=== PATIENT | male | born 1970 | race Caucasian/White ===

== ENCOUNTER → 2019-11-22 | Outpatient (CLI) | payer OTHER | LOC: SC 19:30 | PROVIDERS: ATTEND Nurse Practitioner Family | DX: G47.33 Obstructive sleep apnea (adult) (pediatric) (principal) | CPT/HCPCS: 95806 ==

== ENCOUNTER 2019-12-18 14:28 | Outpatient (CLI) | payer OTHER ==
--- NOTE | 2019-12-18 15:15 | SLEEP CARE CONSULTATION ---
Information from patient questionnaire entered by Carlos Alston. I have reviewed and concur with the information entered by Carlos Alston. This document represents the service I personally performed and the decisions made by me, Collette Puckett ARNP. History of Present Illness Service Date and Time: 12/18/20191427 Initial [place] Sleepiness Scale score: 17 (in 2020) Current [place] Sleepiness Scale score: 16 Additional HPI information: TAWANNA WALTERS returns for follow up and results of the recently performed home sleep study. I explained the pathophysiology behind obstructive sleep apnea. We then spent quite a bit of time discussing different treatment options. For mild obstructive sleep apnea, surgery and oral appliance are alternatives to nasal CPAP therapy but in moderate or severe cases, nasal CPAP is the most effective a nd reliable treatment. Because apnea is primarily in supine position, then positional management therapy could be effective. Methods discussed such as positioning with pillows, using a T-shirt with tennis balls in the back, and shown commercial products that have a pillow format on back to prevent supine sleep. I reviewed the impact of weight changes on sleep apnea and strongly recommended losing weight. After some discussion, the patient opted to go with the nasal CPAP therapy. Nasal autoCPAP set at 4-15 cmH20 will be ordered with rationale explained. A manual titration study will be ordered if unable to find optimal pressure with office adjustments. I explained how CPAP machine works with sample devices Respironics Dreamstation and ResCitilog [id number] and what to expect when using the machine. Using CPAP every night in order to get used to it was emphasized. Patient advised to put CPAP mask on before getting into bed so as not to fall asleep without CPAP. To assist acclimation to CPAP use, it could also be used for a short time during day while reading or watching TV. The patient was instructed to call the CPAP supplier to discuss any mechanical problem that may occur. If the mask given is uncomfortable or is difficult to keep on through the night even with adjustment, contact the CPAP supplier as many will replace with another mask style if notified before 30 days. If snoring or perceives is not getting enough air or too much air from the machine, notify this office. [facility] patient education PAP tips reviewed and given to patient. Patient counseled not drink alcohol less than 4 hours before bedtime as it can increase snoring and apnea. Patient was cautioned about risks of drowsy driving until sleepiness symptoms resolve. Sleep Study - Results Type of Sleep Study: Home sleep study Prior sleep studies: No Polysomnography/Home Sleep Study results: The AHI4% calculation of 6.5 per hour of recording time was based on a total of 4 scored apneas and 40 scored hypopneas with 4% desaturations. Supine AHI4%: 58.4 per hour. Non-supine AHI4%: 5.2 per hour. Oxygen Summary: Patient's baseline O2 saturation was 96.4 %. The patient spent 14.6 minutes at an oxygen saturation less than 90%, and 0.1 minutes less than 85%. The desaturation index was 7.0 events per hour sleep time. The lowest saturation was 84.8 %. SNORING: The percent of the study time spent snoring was 0.0 %. The Snoring Count was 0 . The Snoring Index was 0.0 . PULSE RATE REVIEW: The mean heart rate was 82 beats per minute. The rate ranged from a low of 57 to a high of 102 beats per minute. DIAGNOSIS CODE: Obstructive Sleep Apnea (ICD-10 G47.33), associated with mild hypoxia. Allergies and Home Medications Drug allergies reviewed: Yes (NKDA) Home medication list reviewed: Yes (no changes) Review of Systems Review of systems same as previous: Yes (no changes) Physical Exam Heart Rate: 101 O2 Saturation: 98 Height: 6 ft Weight: 217 lb Body Mass Index: 29.4 BMI Classification: Overweight Impression and Plan 1. Obstructive Sleep Apnea-Hypopnea Syndrome, mild, with lowest oxygen saturation of 84.8%. Obviously this is the cause of the patients symptoms of unrefreshed sleep, and excessive daytime sleepiness. Positive pressure therapy could benefit hypertension. As mentioned above, the patient will be started on nasal autoCPAP therapy with pressure set at 4-15 cmH2O. A manual titration study will be completed if unable to find optimal treatment pressure with office adjustments. Compliance guidelines also reviewed. A copy of compliance guidelines will be given for reference at check out. Because the apnea is more severe supine, I instructed to avoid sleeping supine using pillow positioning until able to start CPAP use. * Nasal auto CPAP therapy, pressure at 4-15 cm H2O. * Attempt to lose weight. * Avoid alcohol consumption near bedtime. * Avoid supine sleep until using CPAP. * The patient is again cautioned about driving until sleepiness completely resolves. * Return one month after CPAP obtained. I will assess response to therapy and compliance at that time. Counseling Topics: Weight loss health impact Visit Type: In Office Time Spent with Patient (minutes): 19 Provider Statement: I spent 100% of the Face to Face Visit with the patient with greater than 50% spent counseling the patient and coordination of care.
== END 2019-12-18 14:29 | disposition home or self-care (01) ==
LOC: SC 14:28
PROVIDERS: ATTEND Nurse Practitioner Family
DX: G47.33 Obstructive sleep apnea (adult) (pediatric) (principal); E66.3 Overweight; Z68.29 Body mass index [BMI] 29.0-29.9, adult
CPT/HCPCS: 99212; 99213

== ENCOUNTER 2021-11-10 10:47 | Outpatient (CLI) | payer OTHER ==
[2021-11-10 11:25] VITALS: BP 136/80
--- NOTE | 2021-11-10 11:25 | SLEEP CARE CONSULTATION ---
Information from patient questionnaire entered by Yahaira Burgess. I have reviewed and concur with the information entered by Yahaira Burgess. This document represents the service I personally performed and the decisions made by me, Collette Puckett ARNP. History of Present Illness Service Date and Time: 11/10/2021 1047 Previous diagnosis: Mild, Obstructive Sleep Apnea-Hypopnea Syndrome AHI: 6.5 (in 2019) Reason for follow up: annual (LAST SEEN 12/2019) Equipment type: CPAP (ResMed Airsense 10) Equipment obtained from: [facility] (not getting supplies due to needing prescription updated) Mask style: Full face (?F20) Backup mask available: No (needs to renew supplies) Last cushion change: September 2021 Prior sleep studies: No Type of Sleep Study: Home sleep study HPI additional information: TAWANNA WALTERS was diagnosed to have mild, AHI 6.5, obstructive sleep apnea- hypopnea syndrome and returned today for CPAP therapy annual follow-up. Sleep Study - Results Type of Sleep Study: Home sleep study Prior sleep studies: No CPAP Compliance Data - Data Reviewed with Patient Average duration of nightly device use: 4 hours 37 minutes Compliance rate %: 33 (105/180 days used) Current pressure setting (cmH2O): 4-15 Average residual AHI: 0.4 Compliance data discussion: Pt states his compliance has not been good the last couple of weeks due to not having supplies. He ran out of the filter and [facility] didn't get him replacements. 11/10/21 11am BRISA Redd Subjective Patient concerns: reports: air blowing in eyes, mask leak noise, dry mouth, nose, throat (occasionally). denies: aerophagia, mask discomfort, condensation in mask/hose, nasal congestion, epistaxis Observed to snore while using device: No Current pressure setting perceived as: comfortable On therapy, patient: reports: sleeping better, awakening more refreshed, being more awake and alert during the day, more rested overall. denies: drowsiness while driving Initial [place] Sleepiness Scale score: 17 (in 2019) Current [place] Sleepiness Scale score: 16 (11/09/21) Allergies and Home Medications Drug allergies reviewed: Yes (Vicodin) Home medication list reviewed: Yes (no changes) Review of Systems Review of systems same as previous: No (PTSD, in therapy) Physical Exam Vital signs obtained and entered by: BRISA REDD Blood Pressure: 136/80 (left arm ) Cuff size: regular Heart Rate: 97 O2 Saturation: 97 Height: 6 ft Weight: 205 lb Weight change since last visit: 36 lb loss according to patient Body Mass Index: 27.8 BMI Classification: Overweight Impression and Plan 1. Obstructive Sleep Apnea-Hypopnea Syndrome, mild, with poor treatment compliance and good apnea control. On CPAP therapy, the patient has better sleep quality and is more rested overall. Patient ran out of supplies and has been unable to use his CPAP regularly as he wishes to do. I will update his prescription for supplies and have him come in to recheck compliance. He voiced understanding. Patient's apnea severity and rationale for treatment to reduce ap jazmín, improve sleep quality and reduce cardiovascular and cerebrovascular events was reviewed. I also reviewed the benefit of consistent device use of CPAP for hypertension. Patient states he gained weight after we last saw him but through diet and exercise has lost weight, about 36 pounds. I encouraged him to continue to try to lose weight. * Continue auto CPAP pressure at 4-15 cmH2O * Update supplies * Notify me if snoring with mask or feeling that the pressure is too much or too little * Continue to try to lose weight * Call this office if any problems using CPAP * Return for follow up in 1 year, or sooner if concerns arise Counseling Topics: Spare mask, Weight loss health impact Visit Type: In Office Time Spent with Patient (minutes): 23 Provider Statement: I spent 100% of the Face to Face Visit with the patient with greater than 50% spent counseling the patient and coordination of care.
== END 2021-11-10 10:48 | disposition home or self-care (01) ==
LOC: SC 10:47
PROVIDERS: ATTEND Nurse Practitioner Family
DX: G47.33 Obstructive sleep apnea (adult) (pediatric) (principal); E66.3 Overweight; Z68.27 Body mass index [BMI] 27.0-27.9, adult
CPT/HCPCS: 99212; 99213

== ENCOUNTER 2021-12-08 08:15 | Outpatient (CLI) | payer OTHER ==
--- NOTE | 2021-12-08 09:27 | MRI Report ---
PROCEDURE: LUMBAR SPINE WO INDICATIONS: DORSALGIA TECHNIQUE: Noncontrast sagittal T1 spin echo and T2 fast echo, sagittal STIR, axial T1 and T2 fast spin echo thr ough the lumbar spine. In cases with scoliosis, additional coronal T2 fast spin echo may be performe d. COMPARISON: None. FINDINGS: Image quality: Excellent. Alignment and Curvature: No plain films are available for comparison. Thus, for numbering purposes, 5 lumbar type vertebral bodies will be presumed for the current report. This should be confirmed with plain film correlation prior to any lumbar spinal intervention. There is a 2 mm of retrolisthesis of L5 on S1 otherwise normal bony alignment. Bone Marrow: Marrow is of normal overall signal. L3 hemangioma. No acute vertebral body compression fractures. There is mild reactive signal within the end plate adjacent to the L5-S1 intervertebral d isc. There is moderate left and mild right sided marrow edema within the sacrum and iliac bones adjac ent to the sacroiliac joints. Spinal Cord: Conus medullaris terminates at the mid L1 level. Visualized cord demonstrates normal s ignal and size. Paraspinous Soft Tissues: No paravertebral masses. T12-L1: Normal in appearance. L1-L2: Normal in appearance. L2-L3: Normal in appearance. L3-L4: Normal in appearance. L4-L5: Normal in appearance. L5-S1: Moderate disc height loss and desiccation. Mild diffuse disc bulge. Mild bilateral facet hyp ertrophy. Mild canal stenosis. Mild bilateral foraminal stenosis. IMPRESSION: 1. Left greater than right sacroiliitis. 2. Disc and facet disease at L5-S1 causing mild canal and foraminal stenoses. No neural impingement. Reviewed by: Estephania Mueller MD on 12/08/2021 9:26 AM PDT Approved by: Estephania Mueller MD on 12/08/2021 9:26 AM PDT Station ID: [id number]
== END 2021-12-08 08:16 | disposition home or self-care (01) ==
LOC: DI 08:15
DX: M46.1 Sacroiliitis, not elsewhere classified (principal); M51.37 Other intervertebral disc degeneration, lumbosacral region; M47.817 Spondylosis without myelopathy or radiculopathy, lumbosacral region; M48.07 Spinal stenosis, lumbosacral region

== ENCOUNTER 2021-12-13 08:40 | Outpatient (CLI) | payer OTHER ==
[2021-12-13 09:11] VITALS: BP 130/80
--- NOTE | 2021-12-13 09:11 | SLEEP CARE CONSULTATION ---
Information from patient questionnaire entered by Walter Esposito. I have reviewed and concur with the information entered by Walter Esposito. This document represents the service I personally performed and the decisions made by me, Collette Puckett ARNP. History of Present Illness Service Date and Time: 12/13/2021 0840 Previous diagnosis: Mild, Obstructive Sleep Apnea-Hypopnea Syndrome AHI: 6.5 Reason for follow up: other (5 WEEK F/U ) Equipment type: CPAP (RESMED) Equipment obtained from: [facility] Mask style: Full face (F20) Mask brand: Resmed Backup mask available: No (needs supplies) Last cushion change: 1 month Prior sleep studies: No Type of Sleep Study: Home sleep study HPI additional information: TAWANNA WALTERS was diagnosed to have mild, AHI 6.5, obstructive sleep apnea- hypopnea syndrome and returned today for CPAP therapy 5 week follow-up. Sleep Study - Results Type of Sleep Study: Home sleep study Prior sleep studies: No CPAP Compliance Data - Data Reviewed with Patient Average duration of nightly device use: 4 hours 0 minutes Compliance rate %: 17 (01/11 days used) Current pressure setting (cmH2O): 4-15 Average residual AHI: 0.2 Central apnea: 0.0 Obstructive apnea: 0.0 Average large leak: 0.0 Compliance data discussion: He ordered supplies but has not been able to receive any supplies. The heated tubing has an odor to it and he is not able to use it. He is not able to sleep well without his CPAP. Subjective Missed days of use due to: reports: illness, other (not getting supplies) Patient concerns: reports: condensation in mask/hose (just when in [place], not since), nasal congestion, dry mouth, nose, throat. denies: aerophagia, mask discomfort, air blowing in eyes, mask leak noise, epistaxis Observed to snore while using device: No Current pressure setting perceived as: comfortable On therapy, patient: reports: sleeping better, awakening more refreshed, being more awake and alert during the day, more rested overall. denies: drowsiness while driving Initial [place] Sleepiness Scale score: 17 (in 2019) Current [place] Sleepiness Scale score: 14 (12/13/21) Allergies and Home Medications Drug allergies reviewed: Yes (vicodin) Home medication list reviewed: Yes (no changes) Review of Systems Review of systems same as previous: Yes (no changes) Physical Exam Vital signs obtained and entered by: WALTER Alas MA Blood Pressure: 130/80 (left arm ) Cuff size: regular Heart Rate: 102 O2 Saturation: 98 Height: 6 ft Weight: 215 lb 6.4 oz Body Mass Index: 29.2 BMI Classification: Overweight Impression and Plan 1. Obstructive Sleep Apnea-Hypopnea Syndrome, mild, with poor treatment compliance and good apnea control. On CPAP therapy, the patient has better sleep quality and is more rested overall. Patient having difficulty being able to get supplies from his DME company. He got a call from them about 5 days after his last appointment and made an order but evidently it was not submitted. He talked to them 2 weeks after not receiving the order and they submitted an order. It has been about 2-1/2 weeks since then and he still has not received the supplies. He states his tubing has a odor to it from him using an ozone cell cleaner that he cannot get out and is making it difficult for him to use the machine. He really likes using his device and has good restful sleep when using it. He has been unable to use it because of the odor. I was able to supply him with a new heated tubing for his ResMed machine. I will have my color maker dyer contact his DME to see what is going on with his supply orders. I will have him follow-up again in 1 to 2 months to recheck compliance since he was unable to bring this up due to these supply difficulties. Patient's apnea severity and rationale for treatment to reduce apnea, improve sleep quality and reduce cardiovascular and cerebrovascular events was reviewed. I also reviewed the benefit of consistent device use of CPAP for hypertension. * Continue auto CPAP pressure at 4-15 cmH2O * Notify me if snoring with mask or feeling that the pressure is too much or too little * Call this office if any problems using CPAP * Return for follow up in 1-2 months, or sooner if concerns arise Counseling Topics: Spare mask, Weight loss health impact Visit Type: In Office Time Spent with Patient (minutes): 22 Provider Statement: I spent 100% of the Face to Face Visit with the patient with greater than 50% spent counseling the patient and coordination of care.
== END 2021-12-13 08:41 | disposition home or self-care (01) ==
LOC: SC 08:40
PROVIDERS: ATTEND Nurse Practitioner Family
DX: G47.33 Obstructive sleep apnea (adult) (pediatric) (principal); E66.3 Overweight; Z68.29 Body mass index [BMI] 29.0-29.9, adult
CPT/HCPCS: 99212; 99213